=== PATIENT | female | born 1990 | race Caucasian/White ===

== ENCOUNTER 2020-12-30 21:09 | Emergency (ER) | payer BC ==
[2020-12-30] MEDS ORDERED: DEXAMETHASONE SOD PHOSPHATE 10 MG/1 ML VIAL IVPUSH ONE (21:20)
[2020-12-30] MEDS ORDERED: DEXAMETHASONE SOD PHOSPHATE 10 MG/1 ML VIAL ONE (21:24)
[2020-12-30 21:42] VITALS: BP 138/96; PULSE 74; TEMP 99; BMI 22.6
== END 2020-12-30 23:13 | disposition home or self-care (01) ==
LOC: FER 21:09
PROC: 3E033GC Introduction of Other Therapeutic Substance into Peripheral Vein, Percutaneous Approach (ICD-10-PCS; principal; 2020-12-30)
DX: J02.9 Acute pharyngitis, unspecified (principal); T78.40XA Allergy, unspecified, initial encounter
CPT/HCPCS: 87070; 87186; 87205; 99284-25; J1100